=== PATIENT | male | born 1965 | race African-American/Black ===

== ENCOUNTER 2020-12-28 17:49 | Emergency (ER) | payer OTHER ==
[~2020-12-28] VITALS: Ht 170.2 cm; Wt 111.4 kg
[2020-12-28] MEDS ORDERED: ACETAMINOPHEN 500 MG TABLET PO ONE (18:15)
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
[2020-12-28] MEDS ORDERED: CYCL-331 PO (18:57)
[2020-12-28] MEDS ORDERED: CYCLOBENZAPRINE 10 MG TABLET. PO ONE (19:00)
[2020-12-28] MEDS ORDERED: oxyCODONE IR 5 MG TABLET PO PRN (19:00)
[2020-12-28 19:15] VITALS: BP 149/86
== END 2020-12-28 19:15 | disposition home or self-care (01) ==
LOC: ER 17:49
DX: M54.2 Cervicalgia (principal); M25.561 Pain in right knee; Z91.013 Allergy to seafood; V89.2XXA Person injured in unspecified motor-vehicle accident, traffic, initial encounter; Y93.89 Activity, other specified; Y92.89 Other specified places as the place of occurrence of the external cause; Y99.8 Other external cause status
CPT/HCPCS: 72125; 73562; 99284-25